=== PATIENT | male | born 1950 | race Two or more races ===

== ENCOUNTER → 2017-03-30 | Outpatient (CLI) | payer OTHER, MEDICAID | END | disposition home or self-care (01) | LOC: Rad HDHVI 07:43 | PROVIDERS: ATTEND Internal Medicine Cardiovascular Disease | DX: R55 Syncope and collapse (principal) | CPT/HCPCS: 93306 ==

== ENCOUNTER → 2017-03-31 | Outpatient (CLI) | payer OTHER, MEDICAID ==
[~2017-03-31] VITALS: Ht 30.5 cm; Wt 0.5 kg
[~2017-03-31] MED LIST: ADENOSINE 76 MG in GIVE UN-DILUTED 0 ML IV ONE; ADENOSINE 90 MG/30 ML INJ IV ONE
== END | disposition home or self-care (01) ==
LOC: Rad HDHVI 09:19
PROVIDERS: ATTEND Internal Medicine Cardiovascular Disease
DX: I10 Essential (primary) hypertension (principal); E11.9 Type 2 diabetes mellitus without complications; R55 Syncope and collapse
CPT/HCPCS: 78452; 93005; 96374; 96375; A9500; J0153

== ENCOUNTER → 2019-08-10 | Outpatient (CLI) | payer OTHER, MEDICAID ==
[~2019-08-10] MED LIST changes: -ADENOSINE 76 MG in GIVE UN-DILUTED 0 ML IV ONE; -ADENOSINE 90 MG/30 ML INJ IV ONE; +ALLO100T PO; +ASPI-404 PO; +GLIP5TAB12 PO; +LISI-285 PO; +MET50T PO; +METF-370 PO; +POTA-220 PO
[2019-08-10 08:15] VITALS: BP 104/64
[2019-08-10 08:55] VITALS: BP 113/62
--- NOTE | 2019-08-10 08:55 | NUR ---
Pre-Op Discharge Summary: See e-MAR for any medications given for this visit. Pre-op orders received and carried out per MD of EKG, LABS and prescription given for chest xrays. Patient given a copy of EKG with instructions to go to [facility] out patient for further follow up care.
[2019-08-10 11:07] LABS: Basophils # (auto) 0.1 uL; Basophils % (auto) 1.2 % (0.0-2.0); Eosinophils # (auto) 0.5 uL; Eosinophils % (auto) 6.9 % (0.0-7.0); Hematocrit 45.6 % (41.0-53.0); Hemoglobin 15.1 g/dL (13.5-17.5); Lymphocytes # (auto) 1.6 uL; Lymphocytes % (auto) 22.7 % (10.0-50.0); Mean Corpuscular Hemoglobin 30.9 pg (28.0-32.0); Mean Corpuscular Volume 93.6 fL (80.0-100.0); Monocytes # (auto) 0.5 uL; Monocytes % (auto) 7.3 % (0.0-12.0); Neutrophils # (auto) 4.2 uL; Neutrophils % (auto) 61.9 % (37.0-80.0); Nucleated Red Blood Cells % 0.1 %; Platelet Count (auto) 254 10^3/uL (140-450); Red Blood Cells 4.87 10^6/uL (4.5-5.90); Red Cell Distribution Width 13.9 % (11.8-14.3); White Blood Cell 6.8 10^3/uL (4.4-10.8)
[2019-08-10 11:08] LABS: BUN/Creatinine Ratio 16.5; Calcium 8.9 mg/dL (8.5-10.1); Potassium 4.5 mmol/L (3.5-5.1)
[2019-08-10 11:18] LABS: INR 0.95 (0.9-1.15); Partial Thromboplastin Time 29.1 sec (23.64-32.05)
== END | disposition home or self-care (01) ==
LOC: Rad HDHVI 08:11
PROVIDERS: ATTEND Internal Medicine
DX: Z01.812 Encounter for preprocedural laboratory examination (principal); R55 Syncope and collapse; I10 Essential (primary) hypertension
CPT/HCPCS: 36415; 80048; 85025; 85610; 85730; 93005; G0463

== ENCOUNTER 2019-08-15 07:32 | Day surgery (SDC) | payer OTHER, MEDICAID ==
[~2019-08-15] VITALS: Ht 165.1 cm; Wt 93.0 kg
[2019-08-15] MEDS ORDERED: MIDAZOLAM HCL 1MG/1ML-2 ML VIAL ONE (09:22)
[2019-08-15] MEDS ORDERED: fentaNYL CITRATE 100 MCG/2 ML VL ONE (09:22)
[2019-08-15] MEDS ORDERED: LIDOCAINE 2%HCL (LOCAL ANESTH.) INJ 20ML MDV ONE (09:23)
[2019-08-15] MEDS ORDERED: ceFAZolin 1GM/50ML 0 ML IV ONE (09:30)
[2019-08-15] MEDS ORDERED: ceFAZolin 1GM VL ONE (09:30)
[2019-08-15] MEDS ORDERED: VANCOMYCIN 1GM/250ML 250 ML IV ONE (09:31)
[2019-08-15] MEDS ORDERED: VANCOMYCIN HCL 1000 MG VL ONE (09:31)
== END 2019-08-15 12:25 | disposition home or self-care (01) ==
LOC: CATH 07:32
PROVIDERS: ATTEND Internal Medicine
DX: R55 Syncope and collapse (principal); I10 Essential (primary) hypertension; E11.9 Type 2 diabetes mellitus without complications; E78.00 Pure hypercholesterolemia, unspecified; M19.90 Unspecified osteoarthritis, unspecified site; Z79.84 Long term (current) use of oral hypoglycemic drugs; Z79.899 Other long term (current) drug therapy
CPT/HCPCS: 33285; C1764; J2250; J3010; J3370; 99152; J0690

== ENCOUNTER 2019-10-20 09:14 | Emergency (ER) | payer OTHER, MEDICAID ==
[~2019-10-20] VITALS: Ht 165.1 cm; Wt 95.3 kg
[2019-10-20 10:37] LABS: Basophils # (auto) 0.1 uL; Basophils % (auto) 0.9 % (0.0-2.0); Eosinophils # (auto) 0.4 uL; Eosinophils % (auto) 7.1 % (0.0-7.0); Hematocrit 44.4 % (41.0-53.0); Hemoglobin 14.7 g/dL (13.5-17.5); Lymphocytes # (auto) 1.3 uL; Lymphocytes % (auto) 21.9 % (10.0-50.0); Mean Corpuscular Hemoglobin 30.8 pg (28.0-32.0); Mean Corpuscular Hgb Conc. 33.1 g/dL (32.0-36.0); Mean Corpuscular Volume 93.2 fL (80.0-100.0); Monocytes # (auto) 0.7 uL; Monocytes % (auto) 11.5 % (0.0-12.0); Neutrophils # (auto) 3.6 uL; Neutrophils % (auto) 58.6 % (37.0-80.0); Nucleated Red Blood Cells % 0.1 %; Platelet Count (auto) 230 10^3/uL (140-450); Red Blood Cells 4.77 10^6/uL (4.5-5.90); White Blood Cell 6.1 10^3/uL (4.4-10.8)
[2019-10-20 10:57] LABS: Albumin 3.5 g/dL (3.4-5.0); Anion Gap 5 (5-15); Blood Urea Nitrogen 29 mg/dL (7-18); Calcium 8.6 mg/dL (8.5-10.1); Carbon Dioxide 26 mmol/L (21-32); Chloride 107 mmol/L (98-107); Glucose 115 mg/dL (74-106); Potassium 4.7 mmol/L (3.5-5.1); Sodium 138 mmol/L (136-145)
[2019-10-20 11:04] LABS: Alanine Aminotransferase 22 U/L (16-61); Alkaline Phosphatase 100 U/L (45-117); Aspartate Aminotransferase 15 U/L (15-37); BUN/Creatinine Ratio 25.7; Bilirubin, Total 0.5 mg/dL (0.2-1.0); GFR African American 83 mL/min; GFR Non-African American 69 mL/min; Total Protein 7.6 g/dL (6.4-8.2)
[2019-10-20 11:54] VITALS: BP 113/71
[2019-10-20] MEDS ORDERED: KETOROLAC TROMETH 30 MG/ML 1ML VIAL IV ONE (13:15)
== END 2019-10-20 14:13 | disposition home or self-care (01) ==
LOC: ER 09:14
DX: R55 Syncope and collapse (principal); R00.1 Bradycardia, unspecified; R07.89 Other chest pain; E11.9 Type 2 diabetes mellitus without complications; E78.5 Hyperlipidemia, unspecified; I10 Essential (primary) hypertension
CPT/HCPCS: 36415; 70450; 71101; 80053; 84484; 85025; 93005; 96374; 99284; J1885

== ENCOUNTER 2019-11-23 18:34 | Emergency (ER) | payer OTHER, MEDICAID ==
[~2019-11-23] VITALS: Ht 175.3 cm; Wt 95.3 kg
[2019-11-23 20:44] VITALS: BP 135/80
== END 2019-11-23 21:45 | disposition home or self-care (01) ==
LOC: ER 18:34 → EDBD 18:34 → ER 21:45
DX: F41.9 Anxiety disorder, unspecified (principal); R51 Headache; R55 Syncope and collapse; E11.9 Type 2 diabetes mellitus without complications; E78.5 Hyperlipidemia, unspecified; I10 Essential (primary) hypertension; Z79.82 Long term (current) use of aspirin; Z79.899 Other long term (current) drug therapy

== ENCOUNTER → 2020-04-17 | Outpatient (CLI) | payer OTHER, MEDICAID | END | disposition home or self-care (01) | LOC: Rad HDHVI 10:37 | PROVIDERS: ATTEND Internal Medicine | DX: I08.3 Combined rheumatic disorders of mitral, aortic and tricuspid valves (principal); I10 Essential (primary) hypertension; E11.9 Type 2 diabetes mellitus without complications; I49.9 Cardiac arrhythmia, unspecified; R55 Syncope and collapse | CPT/HCPCS: 93306 ==

== ENCOUNTER → 2020-04-18 | Outpatient (CLI) | payer OTHER, MEDICAID ==
[~2020-04-18] VITALS: Ht 165.1 cm; Wt 95.7 kg
[~2020-04-18] MED LIST changes: +ADENOSINE 80 MG in GIVE UN-DILUTED 0 ML IV ONE; +ADENOSINE 90 MG/30 ML INJ IV ONE
== END | disposition home or self-care (01) ==
LOC: Rad HDHVI 08:00
PROVIDERS: ATTEND Internal Medicine
DX: I10 Essential (primary) hypertension (principal); E78.00 Pure hypercholesterolemia, unspecified; E11.9 Type 2 diabetes mellitus without complications; Z95.0 Presence of cardiac pacemaker
CPT/HCPCS: 78452; 93005; 96374; 96375; A9500; J0153

== ENCOUNTER → 2020-04-21 | Outpatient (CLI) | payer OTHER, MEDICAID ==
[~2020-04-21] MED LIST changes: -ADENOSINE 80 MG in GIVE UN-DILUTED 0 ML IV ONE; -ADENOSINE 90 MG/30 ML INJ IV ONE
== END | disposition home or self-care (01) ==
LOC: Rad HDHVI 08:28
PROVIDERS: ATTEND Internal Medicine Cardiovascular Disease
DX: N20.0 Calculus of kidney (principal); N40.0 Benign prostatic hyperplasia without lower urinary tract symptoms; I70.8 Atherosclerosis of other arteries; R10.9 Unspecified abdominal pain
CPT/HCPCS: 74176

== ENCOUNTER → 2020-08-04 | Outpatient (CLI) | payer OTHER, MEDICAID ==
[~2020-08-04] MED LIST changes: +ALLO300T2 PO; +AMLO5TAB15 PO; -ASPI-404 PO; +ASPI-543 PO; +ERTU15TA PO; +LOVA20TA4 PO
[2020-08-04 09:55] VITALS: BP 133/82
[2020-08-04 10:09] VITALS: BP 136/79
[2020-08-04 12:11] LABS: Basophils # (auto) 0.1 10 ^3/uL (0-0.2); Basophils % (auto) 1.8 % (0.0-2.0); Eosinophils # (auto) 0.4 10 ^3/uL (0-0.8); Hematocrit 43.8 % (41.0-53.0); Hemoglobin 14.6 g/dL (13.5-17.5); Lymphocytes # (auto) 1.6 10 ^3/uL (0.4-5.4); Lymphocytes % (auto) 25.9 % (10.0-50.0); Mean Corpuscular Hemoglobin 30.8 pg (28.0-32.0); Mean Corpuscular Hgb Conc. 33.3 g/dL (32.0-36.0); Mean Corpuscular Volume 92.5 fL (80.0-100.0); Monocytes # (auto) 0.5 10 ^3/uL (0-1.3); Neutrophils # (auto) 3.5 10 ^3/uL (1.6-8.6); Neutrophils % (auto) 57.3 % (37.0-80.0); Nucleated Red Blood Cells % 0.2 %; Platelet Count (auto) 241 10^3/uL (140-450); Red Blood Cells 4.74 10^6/uL (4.5-5.90); Red Cell Distribution Width 14.1 % (11.8-14.3)
[2020-08-04 12:26] LABS: INR 0.97 (0.9-1.15)
[2020-08-04 12:27] LABS: Calcium 8.8 mg/dL (8.5-10.1); Potassium 4.5 mmol/L (3.5-5.1)
[2020-08-04 12:29] LABS: BUN/Creatinine Ratio 12.4
== END | disposition home or self-care (01) ==
LOC: Rad HDHVI 09:41
PROVIDERS: ATTEND Internal Medicine
DX: Z01.812 Encounter for preprocedural laboratory examination (principal); Z01.818 Encounter for other preprocedural examination; I70.0 Atherosclerosis of aorta; Z95.0 Presence of cardiac pacemaker
CPT/HCPCS: 36415; 71046; 80048; 85025; 85610; 85730; 93005; G0463

== ENCOUNTER 2020-08-08 07:05 | Inpatient (IN) | payer OTHER, MEDICAID ==
[~2020-08-08] VITALS: Ht 165.1 cm; Wt 95.5 kg
[~2020-08-08 07:05] MED LIST changes: -ALLO100T PO; -LISI-285 PO; -MET50T PO; -METF-370 PO
[2020-08-08] MEDS ORDERED: VANCOMYCIN 1GM/250ML 250 ML IV ONE ×2 (09:00→09:23)
[2020-08-08] MEDS ORDERED: fentaNYL CITRATE 100 MCG/2 ML VL ONE (09:22)
[2020-08-08] MEDS ORDERED: VANCOMYCIN HCL 1000 MG VL ONE (09:22)
[2020-08-08] MEDS ORDERED: LIDOCAINE 2%HCL (LOCAL ANESTH.) INJ 20ML MDV ONE (09:23)
[2020-08-08] MEDS ORDERED: MIDAZOLAM HCL 1MG/1ML-2 ML VIAL ONE ×2 (09:23→10:00)
[2020-08-08] MEDS ORDERED: ACETAMINOPHEN 325 MG TAB PO PRN (11:30)
[2020-08-08] MEDS ORDERED: MORPHINE SULF INJ 2 MG/ML SYRINGE 1ML IV PRN (11:30)
[2020-08-08] MEDS ORDERED: LORazepam 0.5 MG TAB PO PRN (11:30)
[2020-08-08] MEDS ORDERED: HYDROcodone-ACET 5/325MG TAB PO PRN (11:30)
[2020-08-08] MEDS ORDERED: NITROGLYCERIN 0.4 MG SL TAB SL PRN (11:30)
[2020-08-08] MEDS ORDERED: DEXTROSE (50%) 50ML SYRG IV PRN (11:45)
--- NOTE | 2020-08-08 15:52 | NUR ---
Telemetry admit from [facility] BARNETT admitted to Telemetry unit after report received. Patient oriented to JEAN GONZALES RN primary RN, unit, room, bed, and unit policies regarding patient care and visiting hours. Patient now on continuous telemetry monitoring, tele box #[id number]. Patient weighed by bedscale and encouraged to call if they need something. All questions and concerns addressed, patient verbalized understanding. Addendum: 08/08/20 at 1919 by JEAN GONZALES RN RN labour market economist
[2020-08-08 17:00] VITALS: BP 126/70
[2020-08-08] MEDS: ACCU-CHEK COMFORT CURVE STRIP VI SCH ×2 (18:11→22:12)
[2020-08-08] MEDS: InsuLIN REG 1unit/0.01ml Soln (100units/ml) SC SCH (18:12)
--- NOTE | 2020-08-08 19:35 | NUR ---
Closing Shift Note Patient resting in bed. Report given. Will endorse care to the night auditor care RN.
[2020-08-08 21:00] VITALS: BP 107/59
[2020-08-08] MEDS ORDERED: InsuLIN REG 1unit/0.01ml Soln (100units/ml) SC SCH (22:00)
[2020-08-08] MEDS ORDERED: PATIENTS OWN MEDICATION (Lovastatin 20 MG) PO SCH (22:00)
[2020-08-08] MEDS ORDERED: LOVASTATIN 20 MG PO SCH (22:00)
[2020-08-09 05:00] VITALS: BP 130/72
[2020-08-09] MEDS: ACCU-CHEK COMFORT CURVE STRIP VI SCH ×2 (06:42→11:00)
[2020-08-09] MEDS: InsuLIN REG 1unit/0.01ml Soln (100units/ml) SC SCH ×2 (06:42→11:09)
--- NOTE | 2020-08-09 07:00 | NUR ---
OPENING SHIFT NOTE RECEIVED REPORT ON THE PATIENT. AWAKE LYING IN BED. PATIENT SHOWS NO SIGNS OF DISTRESS AT THIS TIME. DISCUSSED THE PLAN OF CARE WITH THE PATIENT. BED IN LOWEST POSITION, SIDE RAILS UP X2, AND THE CALL LIGHT IS WITHIN REACH.
[2020-08-09 09:00] VITALS: BP 103/61
[2020-08-09] MEDS ORDERED: ALLOPURINOL 300 MG TAB PO SCH (10:00)
[2020-08-09] MEDS ORDERED: POTASSIUM CHL 20 Meq TABLET PO SCH (10:00)
[2020-08-09] MEDS ORDERED: glipiZIDE 5 MG TAB PO SCH (10:00)
[2020-08-09] MEDS ORDERED: amLODIPine BESYLATE 5 MG TAB PO SCH (10:00)
--- NOTE | 2020-08-09 10:19 | NUR ---
PAGED DR SOLO REGARDING THE NEED FOR A HOSPITALIST CONSULT. AWAITING A CALL BACK.
[2020-08-09 11:52] LABS: Basophils # (auto) 0.1 10 ^3/uL (0-0.2); Basophils % (auto) 1.2 % (0.0-2.0); Eosinophils # (auto) 0.3 10 ^3/uL (0-0.8); Eosinophils % (auto) 4.1 % (0.0-7.0); Hematocrit 46.3 % (41.0-53.0); Hemoglobin 15.1 g/dL (13.5-17.5); Lymphocytes # (auto) 1.5 10 ^3/uL (0.4-5.4); Lymphocytes % (auto) 22.5 % (10.0-50.0); Mean Corpuscular Hemoglobin 30.1 pg (28.0-32.0); Mean Corpuscular Hgb Conc. 32.7 g/dL (32.0-36.0); Monocytes # (auto) 0.6 10 ^3/uL (0-1.3); Monocytes % (auto) 8.6 % (0.0-12.0); Neutrophils # (auto) 4.1 10 ^3/uL (1.6-8.6); Neutrophils % (auto) 63.6 % (37.0-80.0); Nucleated Red Blood Cells % 0.1 %; Platelet Count (auto) 220 10^3/uL (140-450); Red Blood Cells 5.03 10^6/uL (4.5-5.90); Red Cell Distribution Width 13.8 % (11.8-14.3); White Blood Cell 6.5 10^3/uL (4.4-10.8)
[2020-08-09] MEDS ORDERED: METO-6 PO (12:32)
[2020-08-09 12:55] VITALS: BP 103/61
[2020-08-09 13:00] VITALS: BP 101/65
[2020-08-09 13:15] LABS: Potassium 4.3 mmol/L (3.5-5.1)
[2020-08-09 13:50] LABS: Albumin 3.3 g/dL (3.4-5.0); Bilirubin, Total 0.7 mg/dL (0.2-1.0); Total Protein 7.2 g/dL (6.4-8.2)
[2020-08-09 14:37] LABS: Calcium 8.8 mg/dL (8.5-10.1)
[2020-08-09 14:43] LABS: BUN/Creatinine Ratio 15.7
== END 2020-08-09 14:23 | disposition home or self-care (01) | DRG 243 ==
LOC: CATH 07:05 → TELE 07:06 → TELE-EAST 15:52
PROVIDERS: ADMIT Internal Medicine; ATTEND Internal Medicine
PROC: 0JH606Z Insertion of Pacemaker, Dual Chamber into Chest Subcutaneous Tissue and Fascia, Open Approach (ICD-10-PCS; principal; 2020-08-08)
PROC: 02HK3JZ Insertion of Pacemaker Lead into Right Ventricle, Percutaneous Approach (ICD-10-PCS; 2020-08-08)
PROC: 02H63JZ Insertion of Pacemaker Lead into Right Atrium, Percutaneous Approach (ICD-10-PCS; 2020-08-08)
PROC: 0JPT02Z Removal of Monitoring Device from Trunk Subcutaneous Tissue and Fascia, Open Approach (ICD-10-PCS; 2020-08-08)
DX: I44.30 Unspecified atrioventricular block (principal); I50.32 Chronic diastolic (congestive) heart failure; I11.0 Hypertensive heart disease with heart failure; E11.9 Type 2 diabetes mellitus without complications; E78.5 Hyperlipidemia, unspecified; Z82.49 Family history of ischemic heart disease and other diseases of the circulatory system; Z20.828 Contact with and (suspected) exposure to other viral communicable diseases
CPT/HCPCS: 33208; 36415; 71045; 80053; 82962; 85025; 93005; 99152; 99153; C1785; G0378; J1815; J2250

== ENCOUNTER → 2021-10-29 | Outpatient (CLI) | payer OTHER, MEDICAID ==
[~2021-10-29] MED LIST changes: +AMLO-489 PO; -AMLO5TAB15 PO; +METO-6 PO
== END | disposition home or self-care (01) ==
LOC: Rad HDHVI 07:52
PROVIDERS: ATTEND Internal Medicine
DX: I07.1 Rheumatic tricuspid insufficiency (principal); I11.9 Hypertensive heart disease without heart failure; I77.810 Thoracic aortic ectasia; E78.5 Hyperlipidemia, unspecified
CPT/HCPCS: 93306

== ENCOUNTER → 2021-11-04 | Outpatient (CLI) | payer OTHER, MEDICAID ==
[~2021-11-04] VITALS: Ht 165.1 cm; Wt 88.9 kg
[~2021-11-04] MED LIST changes: +ADENOSINE 75 MG in GIVE UN-DILUTED 0 ML IV ONE; +ADENOSINE 90 MG/30 ML INJ IV ONE
== END | disposition home or self-care (01) ==
LOC: Rad HDHVI 08:29
PROVIDERS: ATTEND Internal Medicine
DX: I10 Essential (primary) hypertension (principal); E11.9 Type 2 diabetes mellitus without complications; E78.5 Hyperlipidemia, unspecified; Z95.0 Presence of cardiac pacemaker
CPT/HCPCS: 78452; 93005; 96374; 96375; A9500; J0153